=== PATIENT | male | born 1960 | race Caucasian/White ===

== ENCOUNTER 2018-06-23 11:04 | Emergency (ER) | END 2018-06-23 15:00 | disposition home or self-care (01) ==

== ENCOUNTER 2018-06-29 11:09 | Emergency (ER) | END 2018-06-29 18:36 | disposition home or self-care (01) ==

== ENCOUNTER 2019-03-22 20:53 | Emergency (ER) | payer BC, OTHER ==
[~2019-03-22] VITALS: Ht 170.2 cm; Wt 96.6 kg
[~2019-03-22 20:53] MED LIST: ACET1TAB40 PO; ASPI-817 PO; CYCL10TA7 PO; DICL100G37 TOP; DOCU-144 PO; EZET1TAB36 PO; GABA100C14 PO; HYDR-3980 PO; HYDR25TA6 PO; IBUP800T48 PO; LINA5TAB PO; METF500T24 PO; PROP40TA4 PO
[2019-03-22 20:59] VITALS: Ht 170.2 cm; Wt 96.6 kg
--- NOTE | 2019-03-22 22:54 | ERD ---
ER Documentation Chief Complaint Chief Complaint blood in stool x 4 days HPI This is a 58-year-old male who presents for evaluation of bright red blood per rectum for the last 4 days. Is associated with straining, and some mild pain in his rectum. He denies any abdominal pain, he had a colonoscopy 4 years ago, he has not had any fever or weight loss. He has not had any shortness of breath, no nausea vomiting, and no p.o. intolerance. ROS All systems reviewed and are negative except as per history of present illness. Medications Home Meds Active Scripts Docusate Sodium* (Colace*) 100 Mg Capsule, 100 MG PO TID for constipation, #30 CAP Prov:MARCELL BANGURA MD 03/22/19 Diclofenac Sodium* (Voltaren* Gel) 1% -100 Gm Gel, 4 GM TOP TID, #1 TUB Prov:BOUBACAR YOUNGBLOOD MD 06/29/18 Hydrocodone/Acetaminophen ([place] 10-325 Tablet) 1 Each Tablet, 1 TAB PO Q6H PRN for PAIN, #7 TAB Prov:BOUBACAR YOUNGBLOOD MD 06/29/18 Ibuprofen* (Motrin*) 800 Mg Tab, 800 MG PO Q6H PRN for PAIN AND OR ELEVATED TEMP, #30 TAB Prov:ISRAEL NICE MD 06/23/18 Reported Medications Acetaminophen with Codeine (Acetaminophen-Cod #3 Tablet) 1 Each Tablet, 1 TAB PO Q4H PRN for PRN, #20 TAB 06/23/18 Linagliptin (TRADJENTA) 5 Mg Tablet, 5 MG PO DAILY, TAB 06/23/18 Hydrochlorothiazide* (Hydrochlorothiazide*) 25 Mg Tab, 25 MG PO DAILY, #30 TAB 06/23/18 Gabapentin* (Gabapentin*) 100 Mg Capsule, 100 MG PO DAILY, #90 CAP 06/23/18 Aspirin* (Aspirin* EC) 81 Mg Tablet.dr, 81 MG PO DAILY, TAB 06/23/18 Metformin Hcl* (Metformin Hcl*) 500 Mg Tablet, 500 MG PO WITH BREAKFAST DINNE, #60 TAB 06/23/18 Propranolol Hcl* (Propranolol Hcl*) 40 Mg Tablet, 40 MG PO BID, TAB 06/23/18 Ezetimibe/Simvastatin (Vytorin 10-20 mg Tablet) 1 Each Tablet, 1 EACH PO DAILY, TAB 11/17/18 Cyclobenzaprine Hcl* (Cyclobenzaprine Hcl*) 10 Mg Tablet, 10 MG PO TID, #90 TAB 06/23/18 Allergies Allergies: Coded Allergies: No Known Allergy (Unverified , 06/23/18) PMhx/Soc History of Surgery: No Anesthesia Reaction: No Hx Neurological Disorder: No Hx Respiratory Disorders: No Hx Cardiac Disorders: No Hx Psychiatric Problems: No Hx Miscellaneous Medical Probl: Yes Hx Alcohol Use: No Hx Substance Use: No Hx Tobacco Use: No Smoking Status: Never smoker Physical Exam Vitals Vital Signs Date Temp Pulse Resp B/P (MAP) Pulse Ox O2 O2 Flow FiO2 Time Delivery Rate 03/22/19 72 18 120/66 97 Room Air 21:58 (84) 03/22/19 98.4 74 20 131/61 96 20:59 (84) Physical Exam Const: No acute distress Head: Atraumatic Eyes: Normal Conjunctiva ENT: Normal External Ears, Nose and Mouth. Neck: Full range of motion. No meningismus. Resp: Clear to auscultation bilaterally Cardio: Regular rate and rhythm, no murmurs Abd: Soft, non tender, non distended, no rebound or guarding, no masses. Normal bowel sounds exam: Normal rectal tone, no active bleeding, no evidence of internal hemorrhoids. Skin: No petechiae or rashes Back: No midline or flank tenderness Ext: No cyanosis, or edema Neur: Awake and alert Psych: Normal Mood and Affect Result Diagram: 03/22/19214703/22/192147 Results 24 hrs Laboratory Tests Test 03/22/19 21:48 White Blood Count 12.0 10^3/ul Red Blood Count 5.11 10^6/ul Hemoglobin 15.0 g/dl Hematocrit 45.4 % Mean Corpuscular Volume 88.8 fl Mean Corpuscular Hemoglobin 29.4 pg Mean Corpuscular Hemoglobin Concent 33.0 g/dl Red Cell Distribution Width 12.9 % Platelet Count 251 10^3/UL Mean Platelet Volume 10.0 fl Immature Granulocytes % 1.200 % Neutrophils % 50.0 % Lymphocytes % 36.3 % Monocytes % 10.1 % Eosinophils % 1.7 % Basophils % 0.7 % Nucleated Red Blood Cells % 0.0 /100WBC Immature Granulocytes # 0.140 10^3/ul Neutrophils # 6.0 10^3/ul Lymphocytes # 4.4 10^3/ul Monocytes # 1.2 10^3/ul Eosinophils # 0.2 10^3/ul Basophils # 0.1 10^3/ul Nucleated Red Blood Cells # 0.0 10^3/ul Prothrombin Time 12.0 Sec Prothrombin Time Ratio 0.9 INR International Normalized Ratio 0.88 Activated Partial Thromboplast Time 25.7 Sec Sodium Level 138 mmol/L Potassium Level 3.9 mmol/L Chloride Level 102 mmol/L Carbon Dioxide Level 25 mmol/L Anion Gap 11 Blood Urea Nitrogen 22 mg/dl Creatinine 0.85 mg/dl Est Glomerular Filtrat Rate mL/min > 60 mL/min Glucose Level 125 mg/dl Calcium Level 9.5 mg/dl Total Bilirubin 0.3 mg/dl Direct Bilirubin 0.00 mg/dl Indirect Bilirubin 0.3 mg/dl Aspartate Amino Transf (AST/SGOT) 27 IU/L Alanine Aminotransferase (ALT/SGPT) 32 IU/L Alkaline Phosphatase 91 IU/L Total Protein 7.7 g/dl Albumin 4.2 g/dl Globulin 3.50 g/dl Albumin/Globulin Ratio 1.20 Procedures/MDM 58-year-old male with no history of coagulopathy, who presents for bright red blood per rectum with straining. Exam reveals about a well-appearing nontoxic male, no distress, he had no peritoneal signs on abdominal exam. Patient had no abdominal pain, do not suspect emergent pathology, such as mesenteric ischemia, he had no signs of symptomatic anemia, and his hemoglobin within normal limits. Suspect most likely etiology to be a nonemergent cause such as internal hemorrhoids, diverticulosis is a consideration. I discussed findings with patient who feels comfortable with discharge plan of care, he does states that his stool has been hard lately, so gave a prescription for stool softener, at discharge she was in no distress. Departure Diagnosis: Primary Impression: Rectal bleeding Condition: Stable Patient Instructions: Rectal Bleed, Stable Additional Instructions: Call your primary care doctor TOMORROW for an appointment during the next 2-3 days.See the doctor sooner or return here if your condition worsens before your appointment time. MARCELL BANGURA MD Mar 22, 2019 22:54
[2019-03-22 23:10] VITALS: BP 110/66; PULSE 71; RESP 17
== END 2019-03-22 23:10 | disposition home or self-care (01) ==
LOC: E/R 20:53
DX: K62.5 Hemorrhage of anus and rectum (principal); Z79.82 Long term (current) use of aspirin; Z79.84 Long term (current) use of oral hypoglycemic drugs
CPT/HCPCS: 36415; 80053; 85025; 85610; 85730; 99283